=== PATIENT | female | born 1965 | race Caucasian/White ===

== ENCOUNTER 2020-11-25 07:02 | Observation (INO) | payer BC ==
[2020-11-20 12:21] LABS: Mean Corpuscular HGB CONC 28.7 g/dL (32.0-36.0); Mean Corpuscular Hemoglobin 22.5 pg (27.0-33.0); Mean Corpuscular Volume 78.5 fl (81.6-98.3); Mean Platelet Volume 10.4 fl (7.4-10.4); Platelet Count 317 10x3/uL (150-450); RBC Distribution Width 25.7 % (11.5-14.5); Red Blood Cell (RBC) Count 4.88 10x6/uL (3.90-5.03); White Blood Cell (WBC) Count 8.3 10x3/uL (3.5-10.5)
[2020-11-20 12:35] LABS: BHCG - Serum Negative (NEGATIVE); Pregs Control Background? CLEAR/WHITE (CLR/WHITE); Pregs Control Bar Appear? YES (CONTROL BAR)
[2020-11-20 21:53] LABS: SARS-CoV-2 PCR by NAA Not Detected (NotDetected)
[2020-11-24 15:53] VITALS: BMI 36.7
[2020-11-25] MEDS ORDERED: Gabapentin 300 MG CAP ONE (07:12)
[2020-11-25] MEDS ORDERED: Famotidine/PF 20 mg/2ml Vial ONE (07:13)
[2020-11-25] MEDS ORDERED: Lidocaine 1% MPF 2 ML VIAL ONE (07:13)
[2020-11-25] MEDS ORDERED: CeleCOXIB 100 MG CAP ONE (07:13)
[2020-11-25] MEDS ORDERED: Levofloxacin 500 mg/D5W 100 ml Premix Bag ONE (08:33)
[2020-11-25] MEDS ORDERED: Rocuronium Bromide 10 MG/ML (10ML VIAL) ONE (10:05)
[2020-11-25] MEDS ORDERED: Dexamethasone 4 mg/ml Vial ONE (10:05)
[2020-11-25] MEDS ORDERED: PROPOFOL 20 ML ONE (10:05)
[2020-11-25] MEDS ORDERED: Ondansetron PF 4 MG/2 ML Vial ONE (10:05)
[2020-11-25] MEDS ORDERED: Fentanyl 100 MCG/2 ML VIAL ONE (10:05)
[2020-11-25] MEDS ORDERED: Lidocaine 2% PF 5 ML VIAL ONE (10:06)
[2020-11-25] MEDS ORDERED: Bupivacaine PF 0.5% 30 ML VIAL ONE (10:10)
[2020-11-25] MEDS ORDERED: EPINEPHrine 1 MG/ML AMP ONE (10:11)
[2020-11-25] MEDS ORDERED: Glycopyrrolate 0.2 MG/ML 5 ML SYRINGE ONE (11:56)
[2020-11-25] MEDS ORDERED: Ketorolac Tromethamine 30 MG/ML VIAL ONE (11:59)
[2020-11-25] MEDS ORDERED: diphenhydrAMINE 25 MG CAP PO PRN (12:12)
[2020-11-25] MEDS ORDERED: Promethazine HCl 25 MG/ML VIAL IM PRN (12:12)
[2020-11-25] MEDS ORDERED: Simethicone Chewable 80 MG TAB PO PRN (12:12)
[2020-11-25] MEDS ORDERED: Zolpidem Tartrate 5 MG TAB PO PRN (12:12)
[2020-11-25] MEDS ORDERED: Ondansetron PF 4 MG/2 ML Vial IVP PRN (12:12)
[2020-11-25] MEDS ORDERED: Morphine 2 MG/ML VIAL SLOW IVP PRN (12:12)
[2020-11-25] MEDS ORDERED: traMADol HCl 50 MG TAB PO PRN ×2 (12:12)
[2020-11-25] MEDS ORDERED: Morphine 4 MG/ML VIAL SLOW IVP PRN (12:12)
[2020-11-25] MEDS ORDERED: Bisacodyl 10 MG SUPP PR PRN (12:12)
[2020-11-25] MEDS ORDERED: SUMAtriptan Succinate 50 MG TAB PO PRN (12:14)
[2020-11-25] MEDS ORDERED: Dextrose 50% Abboject 50 ML SYRINGE SLOW IVP PRN (13:12)
[2020-11-25] MEDS ORDERED: Dextrose 5% in Water 1,000 ML IV PRN (13:12)
[2020-11-25] MEDS: Sodium Chloride 0.9% 1,000 ML IV SCH (14:49)
[2020-11-25] MEDS ORDERED: Labetalol HCl 100 MG/20 ML VIAL ONE (15:51)
[2020-11-25] MEDS: Labetalol HCl 100 MG/20 ML VIAL SLOW IVP SCH ×2 (15:52→16:13)
[2020-11-25] MEDS: Insulin Regular 300 UNITS/3 ML VIAL SC PRN ×2 (16:42→20:30)
[2020-11-25] MEDS ORDERED: NIFEdipine 10 MG CAP PO SCH (16:45)
[2020-11-25] MEDS ORDERED: Lisinopril 10 MG TAB PO SCH (16:45)
[2020-11-25] MEDS ORDERED: Amlodipine 5 MG TAB PO SCH (16:45)
[2020-11-25] MEDS: Ketorolac Tromethamine 30 MG/ML VIAL IVP SCH (17:58)
[2020-11-25 19:53] VITALS: TEMP 98.8
[2020-11-25] MEDS: Docusate 100 MG CAP PO SCH (22:19)
[2020-11-26] MEDS: Ketorolac Tromethamine 30 MG/ML VIAL IVP SCH (00:33)
[2020-11-26] MEDS: Sodium Chloride 0.9% 1,000 ML IV SCH (02:30)
[2020-11-26 04:16] VITALS: BP 143/69
[2020-11-26] MEDS ORDERED: Ibuprofen 800 MG TAB PO SCH (06:00)
[2020-11-26] MEDS: Insulin Regular 300 UNITS/3 ML VIAL SC PRN (06:05)
[2020-11-26 06:54] LABS: Hemoglobin 10.6 g/dL (12.0-15.5); Mean Corpuscular HGB CONC 30.2 g/dL (32.0-36.0); Mean Corpuscular Hemoglobin 23.3 pg (27.0-33.0); Mean Corpuscular Volume 77.1 fl (81.6-98.3); Mean Platelet Volume 9.4 fl (7.4-10.4); Platelet Count 293 10x3/uL (150-450); RBC Distribution Width 24.1 % (11.5-14.5); Red Blood Cell (RBC) Count 4.55 10x6/uL (3.90-5.03); White Blood Cell (WBC) Count 15.5 10x3/uL (3.5-10.5)
[2020-11-26] MEDS ORDERED: Ferrous Sulfate 325 MG TAB PO SCH (08:00)
[2020-11-26] MEDS: Docusate 100 MG CAP PO SCH (08:41)
[2020-11-26] MEDS ORDERED: Amlodipine 5 MG TAB PO SCH (09:00)
[2020-11-26] MEDS ORDERED: Lisinopril 10 MG TAB PO SCH (09:00)
[2020-11-26] MEDS ORDERED: metFORMIN 500 MG TAB PO SCH (09:00)
[2020-11-26] MEDS ORDERED: Atorvastatin Calcium 20 MG TAB PO SCH (21:00)
== END 2020-11-26 09:10 | disposition home or self-care (01) ==
LOC: CSHSDC 07:02 → CSHPP 14:03
PROVIDERS: ADMIT Obstetrics & Gynecology; ATTEND Obstetrics & Gynecology
PROC: 0UT94ZZ Resection of Uterus, Percutaneous Endoscopic Approach (ICD-10-PCS; principal; 2020-11-25)
PROC: 0UT24ZZ Resection of Bilateral Ovaries, Percutaneous Endoscopic Approach (ICD-10-PCS; 2020-11-25)
PROC: 0UT74ZZ Resection of Bilateral Fallopian Tubes, Percutaneous Endoscopic Approach (ICD-10-PCS; 2020-11-25)
DX: D25.9 Leiomyoma of uterus, unspecified (principal); N92.0 Excessive and frequent menstruation with regular cycle; N72 Inflammatory disease of cervix uteri; Z79.899 Other long term (current) drug therapy; E11.9 Type 2 diabetes mellitus without complications; I10 Essential (primary) hypertension; E78.5 Hyperlipidemia, unspecified; D50.9 Iron deficiency anemia, unspecified
CPT/HCPCS: 36416; 84703; 85027; 86850; 86900; 86901; 87635; 88307; J0171; J1100; J1815; J1885; J1956; J2001; J2405; J2550; J2704; J3010; J3490; S0020; S0028; U0003; U0005